=== PATIENT | male | born 1995 | race African-American/Black ===

== ENCOUNTER 2020-09-23 11:37 | Emergency (ER) | payer OTHER ==
[2020-09-23 12:07] VITALS: BP 114/68; PULSE 82; TEMP 98.1; BMI 30.7
[2020-09-23] MEDS ORDERED: ACETAMINOPHEN 500 MG TABLET (FP) PO ONE (12:39)
[2020-09-23] MEDS ORDERED: DIPHTH,PERTUSS(ACELL),TET 0.5 ML DISP.SYRIN IM ONE ×2 (12:39→13:11)
[2020-09-23] MEDS ORDERED: ACETAMINOPHEN 500 MG TABLET (FP) ONE (13:11)
== END 2020-09-23 14:48 | disposition home or self-care (01) ==
LOC: JER 11:37
PROC: 0JQ10ZZ Repair Face Subcutaneous Tissue and Fascia, Open Approach (ICD-10-PCS; principal; 2020-09-23)
PROC: 3E0234Z Introduction of Serum, Toxoid and Vaccine into Muscle, Percutaneous Approach (ICD-10-PCS; 2020-09-23)
DX: S01.81XA Laceration without foreign body of other part of head, initial encounter (principal); Y09 Assault by unspecified means; Y92.9 Unspecified place or not applicable
CPT/HCPCS: 12011; 70450-TC; 70486-TC; 72125-TC; 90471; 90715; 99285-25

== ENCOUNTER 2020-09-26 12:40 | Emergency (ER) | payer OTHER ==
[2020-09-26 12:46] VITALS: BP 123/71; PULSE 95; TEMP 98.4; BMI 27.2
== END 2020-09-26 15:13 | disposition home or self-care (01) ==
LOC: JER 12:40
DX: Z48.02 Encounter for removal of sutures (principal)
CPT/HCPCS: 99281-25